=== PATIENT | female | born 1935 | race Caucasian/White ===

== ENCOUNTER 2020-10-15 12:35 | Observation (INO) | payer MEDICARE ==
--- NOTE | 2020-10-15 13:52 | EDM.PDOC ---
ED HPI GENERAL MEDICAL PROBLEM - General Chief Complaint: Gastrointestinal Problem Stated Complaint: POSSIBLE DIVERTICULITIS Time Seen by Provider: 10/15/20 13:47 Source of Information: Reports: Patient History Limitations: Reports: No Limitations - History of Present Illness INITIAL COMMENTS - FREE TEXT/NARRATIVE: pt has been ill for the past 2 weeks. She has been having left sided low grade abdomanal pain. She has been vomiting some. She has been checked at the clinic her urine was clear. She has not been getting enough fluids in. Onset: Gradual Duration: Day(s): Location: Reports: Abdomen Associated Symptoms: Reports: Loss of Appetite, Nausea/Vomiting, Other (pain in left lower abdoman. ) - Related Data Allergies Allergy/AdvReac Type Severity Reaction Status Date / Time atorvastatin calcium Allergy Dizziness Verified 10/15/20 13:46 [From Lipitor] erythromycin base Allergy Rash Verified 10/15/20 13:46 [Erythromycin Base] fenofibrate [From Lofibra] Allergy Swelling Verified 10/15/20 13:46 fenofibrate,micronized Allergy Swelling Verified 10/15/20 13:46 [From Lofibra] neomycin [Neomycin] Allergy Cannot Verified 10/15/20 13:46 Remember nickel [Nickel] Allergy Rash Verified 10/15/20 13:46 Penicillins Allergy Hives Verified 10/15/20 13:46 moxifloxacin HCl AdvReac Unknown Cannot Verified 10/15/20 13:46 [From Vigamox] Remember codeine AdvReac Nausea and Verified 10/15/20 13:46 Vomiting colesevelam HCl AdvReac Nausea Verified 10/15/20 13:46 [From WelChol] hydrocodone AdvReac Nausea Verified 10/15/20 13:46 ketorolac AdvReac Nausea Verified 10/15/20 13:46 niacin AdvReac Abdominal Verified 10/15/20 13:46 [From Niaspan Pain Extended-Release] ondansetron AdvReac Headache Verified 10/15/20 13:46 pravastatin AdvReac Muscle Verified 10/15/20 13:46 Aches simvastatin AdvReac Muscle Verified 10/15/20 13:46 Aches tramadol AdvReac Nausea Verified 10/15/20 13:46 Home Meds: Home Meds Calcium Citrate 250 mg PO BID 03/05/13 [History] Cholecalciferol (Vitamin D3) [Vitamin D] 2,000 unit PO DAILY 03/05/13 [History] Ketotifen Fumarate [Zaditor] 2 drop OP TID 03/05/13 [History] Levothyroxine Sodium [Synthroid] 25 mcg PO DAILY 03/05/13 [History] Ubidecarenone [Coenzyme Q10] 100 mg PO DAILY 03/05/13 [History] Past Medical History HEENT History: Reports: Cataract, Hard of Hearing, Impaired Vision Respiratory History: Reports: Bronchitis, Recurrent Gastrointestinal History: Reports: Diverticulosis Genitourinary History: Reports: UTI, Recurrent [employer] History: Reports: Musculoskeletal History: Reports: Arthritis, Osteoporosis Endocrine/Metabolic History: Reports: Hypothyroidism - Past Surgical History HEENT Surgical History: Reports: Cataract Surgery GI Surgical History: Reports: Appendectomy Musculoskeletal Surgical History: Reports: Knee Replacement ED ROS GENERAL - Review of Systems Review Of Systems: See Below Constitutional: Reports: Weakness, Decreased Appetite, Weight Loss HEENT: Reports: No Symptoms Respiratory: Reports: No Symptoms Cardiovascular: Reports: No Symptoms Endocrine: Reports: No Symptoms GI/Abdominal: Reports: Abdominal Pain, Other (pt is having left lower abdomanal pain. ) : Reports: No Symptoms Musculoskeletal: Reports: No Symptoms Skin: Reports: No Symptoms ED EXAM, GI/ABD - Physical Exam Exam: See Below Text/Narrative:: pt arrived with pain in left lower abdoman. Low grade but it has been present for the past 2 weeks. Her stools have been normal. She has been vomiting. Exam Limited By: No Limitations General Appearance: Alert, Anxious, Mild Distress Ears: Normal TMs Nose: Normal Inspection Throat/Mouth: Normal Inspection Head: Atraumatic Neck: Normal Inspection Respiratory/Chest: No Respiratory Distress Cardiovascular: Regular Rate, Rhythm GI/Abdominal Exam: Tender, Other (pt has left lower abdomanal tenderness) Course - Vital Signs Last Recorded V/S: Last Vital Signs Temp 36.3 C 10/15/20 13:49 Pulse 86 10/15/20 13:49 Resp 16 10/15/20 13:49 BP 122/69 10/15/20 13:49 Pulse Ox 93 L 10/15/20 13:49 - Orders/Labs/Meds Orders: Active Orders 24 hr Category Date Time Status Abdomen Ltd [US] Stat Exams 10/15/20 16:41 Ordered Iopamidol [Isovue-300 (61%)] Med 10/15/20 15:10 Active 69 ml IV . DIRECTED PRN Sodium Chloride 0.9% [Normal Saline] 1,000 ml Med 10/15/20 14:30 Active IV ASDIRECTED Sodium Chloride 0.9% [Normal Saline] 100 ml Med 10/15/20 15:15 Active IV ASDIRECTED Medication Orders Sodium Chloride (Normal Saline) 1,000 mls @ 999 mls/hr IV ASDIRECTED SNOW Last Admin: 10/15/20 14:27 Dose: 999 mls/hr Documented by: AARTI Sodium Chloride (Normal Saline) 100 mls @ 3 mls/sec IV ASDIRECTED SNOW Last Admin: 10/15/20 15:44 Dose: 3 mls/sec Documented by: STACONNER Iopamidol (Iopamidol 612 Mg/Ml 100 Ml Bottle) 69 ml IV . DIRECTED PRN PRN Reason: RADIOLOGY EXAM Stop: 10/16/20 15:11 Last Admin: 10/15/20 15:44 Dose: 69 ml Documented by: EVANS Labs: Laboratory Tests 10/15/20 10/15/20 10/15/20 Range/Units 14:00 14:00 14:00 WBC 7.5 (4.5-11.0) K/uL RBC 4.78 (3.30-5.50) M/uL Hgb 14.3 (12.0-15.0) g/dL Hct 42.9 (36.0-48.0) % MCV 90 (80-98) fL MCH 30 (27-31) pg MCHC 33 (32-36) % Plt Count 269 (150-400) K/uL Neut % (Auto) 66.5 H (36-66) % Lymph % (Auto) 14.5 L (24-44) % [place] % (Auto) 14.4 H (2-6) % Eos % (Auto) 4.1 H (2-4) % Baso % (Auto) 0.5 (0-1) % Sodium 138 L (140-148) mmol/L Potassium 4.0 (3.6-5.2) mmol/L Chloride 102 (100-108) mmol/L Carbon Dioxide 28 (21-32) mmol/L Anion Gap 12.0 (5.0-14.0) mmol/L BUN 11 D (7-18) mg/dL Creatinine 0.9 (0.6-1.0) mg/dL Est Cr Clr Drug Dosing 32.23 mL/min Estimated GFR (MDRD) 59 L (>60) Glucose 97 (74-106) mg/dL Calcium 8.2 L (8.5-10.1) mg/dL Total Bilirubin 0.7 (0.2-1.0) mg/dL AST 152 H D (15-37) U/L ALT 293 H (12-78) U/L Alkaline Phosphatase 219 H D (46-116) U/L C-Reactive Protein 5.58 H (0.0-0.3) mg/dL Total Protein 6.3 L (6.4-8.2) g/dL Albumin 2.8 L (3.4-5.0) g/dL Globulin 3.5 (2.3-3.5) g/dL Albumin/Globulin Ratio 0.8 L (1.2-2.2) Meds: Medications Generic Name Dose Route Start Last Admin Trade Name Freq PRN Reason Stop Dose Admin Sodium Chloride 1,000 mls @ 999 mls/hr 10/15/20 14:30 10/15/20 14:27 Normal Saline IV 999 mls/hr ASDIRECTED SNOW Administration Sodium Chloride 100 mls @ 3 mls/sec 10/15/20 15:15 10/15/20 15:44 Normal Saline IV 3 mls/sec ASDIRECTED SNOW Administration Iopamidol 69 ml 10/15/20 15:10 10/15/20 15:44 Iopamidol 612 Mg/Ml 100 Ml Bottle IV 10/16/20 15:11 69 ml . DIRECTED PRN Administration RADIOLOGY EXAM Discontinued Medications Generic Name Dose Route Start Last Admin Trade Name Freq PRN Reason Stop Dose Admin Sodium Chloride 10 ml 10/15/20 15:10 10/15/20 15:45 Sodium Chloride 0.9% 10 Ml Sdv FLUSH 10/15/20 15:11 10 ml ONETIME ONE Administration - Re-Assessments/Exams Free Text/Narrative Re-Assessment/Exam: 10/15/20 16:47 cat scan revealed a possible early diverticulitis. She does have elevated liver enzymes and stones in her gb. Will obtain a abd us to look at the gb. Departure - Departure Time of Disposition: 16:48 Disposition: Admitted As Inpatient 64 Condition: Fair Clinical Impression: Dehydration, Diverticulitis, Elevated liver enzymes - Discharge Information Referrals: Millie Wynne PA [Primary Care Provider] - Forms: ED Department Discharge Care Plan Goals: admit to Dr Aguillon Sepsis Event Note (ED) - Focused Exam Vital Signs: Vital Signs Temp Pulse Resp BP Pulse Ox 10/15/20 13:49 36.3 C 86 16 122/69 93 L 10/15/20 13:40 36.3 C 86 16 122/69 93 L - My Orders Last 24 Hours: My Active Orders 10/15/20 14:30 Sodium Chloride 0.9% [Normal Saline] 1,000 ml IV ASDIRECTED 10/15/20 15:10 Iopamidol [Isovue-300 (61%)] 69 ml IV . DIRECTED PRN 10/15/20 15:15 Sodium Chloride 0.9% [Normal Saline] 100 ml IV ASDIRECTED 10/15/20 16:41 Abdomen Ltd [US] Stat - Assessment/Plan Last 24 Hours: My Active Orders 10/15/20 14:30 Sodium Chloride 0.9% [Normal Saline] 1,000 ml IV ASDIRECTED 10/15/20 15:10 Iopamidol [Isovue-300 (61%)] 69 ml IV . DIRECTED PRN 10/15/20 15:15 Sodium Chloride 0.9% [Normal Saline] 100 ml IV ASDIRECTED 10/15/20 16:41 Abdomen Ltd [US] Stat
[2020-10-15] MEDS ORDERED: Sodium Chloride 0.9% 1,000 ML IV SCH (14:30)
[2020-10-15] MEDS ORDERED: Sodium Chloride 0.9% 10 ML SDV FLUSH ONE (15:10)
[2020-10-15] MEDS ORDERED: Iopamidol 612 MG/ML 100 ML Bottle IV PRN (15:10)
[2020-10-15] MEDS ORDERED: Sodium Chloride 0.9% 100 ML IV SCH (15:15)
--- NOTE | 2020-10-15 16:27 | CRLCT ---
For Patients: As a result of the Century Cures Act, medical imaging exams and procedure reports are released immediately into your electronic medical record. You may view this report before your referring provider. If you have questions, please contact your health care provider. Indication: Abdominal pain liver enzymes are up. Left lower abdominal pain Technique: Contrast and CT abdomen and pelvis with 69 mL Isovue-300 Comparison: No comparison Findings: Heart size normal. 4 millimeter subpleural right lower lobe pulmonary nodule series 2, image 5 2 millimeter pulmonary nodule right lower lobe series 2, image 11 3 millimeter right middle lobe pulmonary nodule on image 12. 4 millimeter left lower lobe pulmonary nodule on image 17. Subcentimeter low-density lesions in the liver too small to characterize. Cholelithiasis no biliary dilatation seen. Spleen pancreas unremarkable no abdominal aortic aneurysm. Symmetric both kidneys. Cyst right kidney extrarenal pelvis on the right. Urinary bladder distended. Small right bladder diverticulum. There is diverticulosis. There is a larger diverticulum of the sigmoid colon with minimal stranding this could represent mild diverticulitis. This is seen on series 2, image 77. No bowel obstruction. No suspicious bony lesions. Impression: 1. Diverticulosis. Larger diverticulum of the sigmoid colon with adjacent minimal stranding which may represent very mild diverticulitis. 2. Small pulmonary nodules follow-up per Fleischner society guidelines. 3. Cholelithiasis no biliary dilatation seen. Please note that all CT scans at this facility use dose modulation, iterative reconstruction, and/or weight-based dosing when appropriate to reduce radiation dose to as low as reasonably achievable. Dictated by Eve Bird MD @ 10/15/2020 4:26:[address] Eve Bird @ Oct 15 2020 4:26PM
[2020-10-15] MEDS ORDERED: diphenhydrAMINE 50 MG/ML SDV IVPUSH PRN (17:46)
[2020-10-15] MEDS ORDERED: EPINEPHrine 1 MG/ML SDV IM PRN (17:48)
[2020-10-15] MEDS ORDERED: Prochlorperazine 10 MG/2 ML SDV IV PRN (17:51)
[2020-10-15] MEDS ORDERED: cefTRIAXone 2 GM in Sodium Chloride 0.9% 50 ML IV SCH (18:00)
--- NOTE | 2020-10-15 18:23 | CRLUS ---
For Patients: As a result of the Century Cures Act, medical imaging exams and procedure reports are released immediately into your electronic medical record. You may view this report before your referring provider. If you have questions, please contact your health care provider. INDICATION: Abdominal pain TECHNIQUE: Ultrasound abdomen limited. Sonographic images of the right upper quadrant were obtained using leone-scale and color Doppler images. COMPARISON: CT abdomen from earlier today FINDINGS: Liver: Normal in size and echotexture. No masses. No intrahepatic biliary dilatation. Gallbladder: Nonmobile echogenic focus in the fundus of the gallbladder. Normal wall thickness. No pericholecystic fluid. Sonographic Avendano`s sign is negative. Common bile duct: 3 mm. Pancreas: Normal. Right kidney: 9.6 x 3.6 x 4.8 cm. Normal echotexture and cortex. 2 cm cyst on the right kidney. No stones, or hydronephrosis. Vasculature: Proximal abdominal aorta and IVC are normal. IMPRESSION: No evidence for acute cholecystitis. Ill-defined echogenic focus in the fundus of the gallbladder. This could represent a polyp or stone. Dictated by Sasha Collins MD @ 10/15/2020 6:21:[address] Sasha Collins @ Oct 15 2020 6:21PM
--- NOTE | 2020-10-15 18:35 | PCM.HP.2 ---
H&P History of Present Illness - General Date of Service: 10/15/20 Admit Problem/Dx: Admission Diagnosis/Problem Admission Diagnosis/Problem Diverticulitis Source of Information: Patient History Limitations: Reports: No Limitations - History of Present Illness Initial Comments - Free Text/Narative: Ms. Odom is an 84-year-old white female who presents after 2 weeks of left lower abdominal pain. She has also had fatigue, no appetite, a dull low back pain, a stomach ache, and a headache. She states that 2 days ago she did have nausea and vomiting from a stress test with associated headache, and stomachache and that the symptoms may not be related to her abdominal pain. She denies diarrhea, constipation, and nausea or vomiting except for the episode associated with the stress test. She states that [facility] and they told her she has diverticulitis and wanted to put her on antibiotics and she declined. She does not like the side effects of multiple medications and lists them as allergies. The [facility] advised her to either go to the ER or see her primary care physician on Friday. He decided to come into the ER when she could not sleep last night due to the pain so she had her daughter bring her. In the ER she was given IV fluids. She had a CT done that showed mild fat stranding around 1 large diverticula in the colon likely representing mild diverticulitis. She also had incidental findings of diverticulosis, multiple pulmonary nodules, and multiple liver lesions that were too small to characterize. On examination she has guarding pain in the left lower quadrant to deep palpation. She also has an audible wheeze that is coming from her neck. Her lungs are clear to auscultation, and her pharynx is normal in appearance. She states that she has had this wheeze for a long time, and she has never had it looked at. She does state that over the summer she has had significant sinus issues. She states that she was a smoker when she was a teenager but now she only smokes occasionally. She will be admitted to the floors under observation. We will be giving her IV antibiotics to reduce the amount of stomach upset as that seems to be the biggest side effect that she does not like. She states that she gets "hives" from penicillins however she also states that most of the medications on her allergy list will kill her. I will be starting her on IV ceftriaxone and IV metronidazole. Ceftriaxone can have a 2% crossover with people who have anaphylaxis to penicillins. Benadryl and epinephrine will be available if she does have a reaction however I think this is highly unlikely. Onset of Symptoms: Reports: Gradual Duration of Symptoms: Reports: Week(s): (To) Location: Reports: Abdomen Quality: Reports: Ache Severity: Moderate Associated Symptoms: Reports: Loss of Appetite - Related Data Allergies/Adverse Reactions: Allergies Allergy/AdvReac Type Severity Reaction Status Date / Time atorvastatin calcium Allergy Dizziness Verified 10/15/20 13:46 [From Lipitor] erythromycin base Allergy Rash Verified 10/15/20 13:46 [Erythromycin Base] fenofibrate [From Lofibra] Allergy Swelling Verified 10/15/20 13:46 fenofibrate,micronized Allergy Swelling Verified 10/15/20 13:46 [From Lofibra] neomycin [Neomycin] Allergy Cannot Verified 10/15/20 13:46 Remember nickel [Nickel] Allergy Rash Verified 10/15/20 13:46 Penicillins Allergy Hives Verified 10/15/20 13:46 moxifloxacin HCl AdvReac Unknown Cannot Verified 10/15/20 13:46 [From Vigamox] Remember codeine AdvReac Nausea and Verified 10/15/20 13:46 Vomiting colesevelam HCl AdvReac Nausea Verified 10/15/20 13:46 [From WelChol] hydrocodone AdvReac Nausea Verified 10/15/20 13:46 ketorolac AdvReac Nausea Verified 10/15/20 13:46 niacin AdvReac Abdominal Verified 10/15/20 13:46 [From Niaspan Pain Extended-Release] ondansetron AdvReac Headache Verified 10/15/20 13:46 pravastatin AdvReac Muscle Verified 10/15/20 13:46 Aches simvastatin AdvReac Muscle Verified 10/15/20 13:46 Aches tramadol AdvReac Nausea Verified 10/15/20 13:46 Home Medications: Home Meds Calcium Citrate 250 mg PO BID 03/05/13 [History] Cholecalciferol (Vitamin D3) [Vitamin D] 2,000 unit PO DAILY 03/05/13 [History] Ketotifen Fumarate [Zaditor] 2 drop OP TID 03/05/13 [History] Levothyroxine Sodium [Synthroid] 25 mcg PO DAILY 03/05/13 [History] Ubidecarenone [Coenzyme Q10] 100 mg PO DAILY 03/05/13 [History] Past Medical History HEENT History: Reports: Cataract, Hard of Hearing, Impaired Vision Respiratory History: Reports: Bronchitis, Recurrent Gastrointestinal History: Reports: Diverticulosis Genitourinary History: Reports: UTI, Recurrent [employer] History: Reports: Musculoskeletal History: Reports: Arthritis, Osteoporosis Endocrine/Metabolic History: Reports: Hypothyroidism - Past Surgical History HEENT Surgical History: Reports: Cataract Surgery GI Surgical History: Reports: Appendectomy Musculoskeletal Surgical History: Reports: Knee Replacement Social & Family History - Tobacco Use Tobacco Use Status *Q: Never Tobacco User H&P Review of Systems - Review of Systems: Review Of Systems: See Below General: Reports: Malaise, Decreased Appetite HEENT: Reports: Hearing Changes (She states she is very hard of hearing and forgot her hearing aids), Sinus Congestion, Other (sinus congestion, audible wheeze coming from neck) Pulmonary: Reports: No Symptoms. Denies: Shortness of Breath, Cough Cardiovascular: Reports: No Symptoms. Denies: Chest Pain, Palpitations Gastrointestinal: Reports: Abdominal Pain, Anorexia, Decreased Appetite. Denies: Diarrhea Genitourinary: Reports: Frequency (She states that she has had urinary frequency all summer). Denies: Dysuria, Urgency, Incontinence Musculoskeletal: Reports: No Symptoms Skin: Reports: No Symptoms Psychiatric: Reports: No Symptoms. Denies: Confusion Neurological: Reports: No Symptoms. Denies: Confusion, Dizziness, Headache Exam - Exam Exam: See Below - Vital Signs Vital Signs: Last Vital Signs Temp 97.4 F 10/15/20 13:49 Pulse 86 10/15/20 13:49 Resp 16 10/15/20 13:49 BP 122/69 10/15/20 13:49 Pulse Ox 93 L 10/15/20 13:49 Weight: 101 lb 6.602 oz - Exam Quality Assessment: DVT Prophylaxis. No: Supplemental Oxygen, Central Line/PICC, Urinary Catheter, Skin Breakdown, Restraints General: Alert, Oriented, Cooperative, Mild Distress HEENT: Conjunctiva Clear, EOMI, Mucosa Moist & [place], Posterior Pharynx Clear, Pupils Equal. No: Hearing Intact Neck: Supple, Trachea Midline, Other (Audible wheeze heard best at the mid neck possibly related to the larynx) Lungs: Clear to Auscultation, Normal Respiratory Effort Cardiovascular: Regular Rate, Regular Rhythm GI/Abdominal Exam: Normal Bowel Sounds, Soft, No Distention, Guarding (With deep palpation in the left lower quadrant), Tender (Left lower quadrant) Back Exam: Normal Inspection Extremities: Normal Inspection, Non-Tender, No Pedal Edema Skin: Warm, Dry, Intact Neuro Extensive - Mental Status: Alert, Oriented x3, Normal Mood/Affect, Normal Cognition Neuro Extensive - Motor, Sensory, Reflexes: Normal Gait Psychiatric: Alert, Normal Affect, Normal Mood - Patient Data Lab Results Last 24 hrs: Laboratory Results - last 24 hr 10/15/20 10/15/20 10/15/20 Range/Units 14:00 14:00 14:00 WBC 7.5 (4.5-11.0) K/uL RBC 4.78 (3.30-5.50) M/uL Hgb 14.3 (12.0-15.0) g/dL Hct 42.9 (36.0-48.0) % MCV 90 (80-98) fL MCH 30 (27-31) pg MCHC 33 (32-36) % Plt Count 269 (150-400) K/uL Neut % (Auto) 66.5 H (36-66) % Lymph % (Auto) 14.5 L (24-44) % [place] % (Auto) 14.4 H (2-6) % Eos % (Auto) 4.1 H (2-4) % Baso % (Auto) 0.5 (0-1) % Sodium 138 L (140-148) mmol/L Potassium 4.0 (3.6-5.2) mmol/L Chloride 102 (100-108) mmol/L Carbon Dioxide 28 (21-32) mmol/L Anion Gap 12.0 (5.0-14.0) mmol/L BUN 11 D (7-18) mg/dL Creatinine 0.9 (0.6-1.0) mg/dL Est Cr Clr Drug Dosing 32.23 mL/min Estimated GFR (MDRD) 59 L (>60) Glucose 97 (74-106) mg/dL Calcium 8.2 L (8.5-10.1) mg/dL Total Bilirubin 0.7 (0.2-1.0) mg/dL AST 152 H D (15-37) U/L ALT 293 H (12-78) U/L Alkaline Phosphatase 219 H D (46-116) U/L C-Reactive Protein 5.58 H (0.0-0.3) mg/dL Total Protein 6.3 L (6.4-8.2) g/dL Albumin 2.8 L (3.4-5.0) g/dL Globulin 3.5 (2.3-3.5) g/dL Albumin/Globulin Ratio 0.8 L (1.2-2.2) Amylase (25-115) U/L Lipase (73-393) U/L 10/15/20 Range/Units 14:00 WBC (4.5-11.0) K/uL RBC (3.30-5.50) M/uL Hgb (12.0-15.0) g/dL Hct (36.0-48.0) % MCV (80-98) fL MCH (27-31) pg MCHC (32-36) % Plt Count (150-400) K/uL Neut % (Auto) (36-66) % Lymph % (Auto) (24-44) % [place] % (Auto) (2-6) % Eos % (Auto) (2-4) % Baso % (Auto) (0-1) % Sodium (140-148) mmol/L Potassium (3.6-5.2) mmol/L Chloride (100-108) mmol/L Carbon Dioxide (21-32) mmol/L Anion Gap (5.0-14.0) mmol/L BUN (7-18) mg/dL Creatinine (0.6-1.0) mg/dL Est Cr Clr Drug Dosing mL/min Estimated GFR (MDRD) (>60) Glucose (74-106) mg/dL Calcium (8.5-10.1) mg/dL Total Bilirubin (0.2-1.0) mg/dL AST (15-37) U/L ALT (12-78) U/L Alkaline Phosphatase (46-116) U/L C-Reactive Protein (0.0-0.3) mg/dL Total Protein (6.4-8.2) g/dL Albumin (3.4-5.0) g/dL Globulin (2.3-3.5) g/dL Albumin/Globulin Ratio (1.2-2.2) Amylase 55 (25-115) U/L Lipase 79 (73-393) U/L Result Diagrams: 10/15/20 14:00 10/15/20 14:00 Sepsis Event Note - Evaluation Sepsis Screening Result: No Definite Risk - Focused Exam Vital Signs: Vital Signs Temp Pulse Resp BP Pulse Ox 10/15/20 13:49 97.4 F 86 16 122/69 93 L 10/15/20 13:40 97.4 F 86 16 122/69 93 L - Problem List (1) Diverticulitis SNOMED Code(s): 229105550 ICD Code: K57.92 - DVTRCLI OF INTEST, PART UNSP, W/O PERF OR ABSCESS W/O BLEED Status: Acute Current Visit: Yes (2) Elevated liver enzymes SNOMED Code(s): 542270757 ICD Code: R74.8 - ABNORMAL LEVELS OF OTHER SERUM ENZYMES Status: Acute Current Visit: Yes Problem List Initiated/Reviewed/Updated: Yes Orders Last 24hrs: Active Orders 24 hr Category Date Time Status Admission Status [Patient Status] [ADT] Routine ADT 10/15/20 17:33 Active Ambulate [RC] PER UNIT ROUTINE Care 10/15/20 17:56 Active Antiembolic Devices [RC] .Routine Care 10/15/20 17:54 Active Oxygen Therapy [RC] PRN Care 10/15/20 17:56 Active VTE/DVT Education [RC] Click to Edit Care 10/15/20 17:54 Active Vital Signs [RC] Q4H Care 10/15/20 17:56 Active Clear Liquid Diet [DIET] Diet 10/16/20 Breakfast Active Abdomen Ltd [US] Stat Exams 10/15/20 16:41 Taken BASIC METABOLIC PANEL,BMP [CHEM] Routine Lab 10/16/20 05:00 Ordered CBC WITH AUTO DIFF [HEME] Routine Lab 10/16/20 05:00 Ordered EPINEPHrine [Adrenalin] Med 10/15/20 17:48 Active 0.3 mg IM ONETIME PRN Famotidine [Pepcid] Med 10/15/20 21:00 Ordered 20 mg IVPUSH BID Iopamidol [Isovue-300 (61%)] Med 10/15/20 15:10 Active 69 ml IV . DIRECTED PRN Prochlorperazine [Compazine] Med 10/15/20 17:51 Active 5 mg IV Q6H PRN Sodium Chloride 0.9% [Normal Saline] 1,000 ml Med 10/15/20 18:00 Active IV ASDIRECTED cefTRIAXone [Rocephin] 2 gm Med 10/15/20 18:00 Active Sodium Chloride 0.9% [Normal Saline] 50 ml IV Q24H diphenhydrAMINE [Benadryl] Med 10/15/20 17:46 Active 50 mg IVPUSH ONETIME PRN metroNIDAZOLE/Normal Saline [Flagyl in NS 500 MG/100 ML Med 10/15/20 18:00 Active ] 500 mg Premix Bag 1 bag IV Q8H DVT/VTE Prophylaxis Reflex [OM.PC] Routine Oth 10/15/20 17:54 Ordered Medication Orders Diphenhydramine HCl (Diphenhydramine 50 Mg/Ml Sdv) 50 mg IVPUSH ONETIME PRN PRN Reason: Allergies Epinephrine HCl (Epinephrine 1 Mg/Ml Sdv) 0.3 mg IM ONETIME PRN PRN Reason: Allergies Famotidine (Famotidine 20 Mg/2 Ml Sdv) 20 mg IVPUSH BID SNOW Ceftriaxone Sodium 2 gm/ (Sodium Chloride) 50 mls @ 100 mls/hr IV Q24H SNOW Metronidazole 500 mg/ Premix 100 mls @ 100 mls/hr IV Q8H SNOW Sodium Chloride (Normal Saline) 1,000 mls @ 100 mls/hr IV ASDIRECTED SNOW Iopamidol (Iopamidol 612 Mg/Ml 100 Ml Bottle) 69 ml IV . DIRECTED PRN PRN Reason: RADIOLOGY EXAM Stop: 10/16/20 15:11 Last Admin: 10/15/20 15:44 Dose: 69 ml Documented by: STACMAG Prochlorperazine Edisylate (Prochlorperazine 10 Mg/2 Ml Sdv) 5 mg IV Q6H PRN PRN Reason: Nausea/Vomiting Assessment/Plan Comment:: Assessment: Mild Diverticulitis -Left lower quadrant abdominal pain for 2 weeks -CT showed mild fat stranding around one large diverticula suggestive of diverticulitis -We will start IV ceftriaxone and IV metronidazole with precautions for allergic reaction with Benadryl and epinephrine available -We will also have Compazine available for nausea or stomach upset related to the antibiotics however getting them IV should prevent this -We will have her on a clear liquid diet until her pain has subsided -I had a discussion with the patient and her mother regarding the ability to eat popcorn, nuts, seeds, and strawberries. I told her that she does not need to eliminate anything from her diet as long as she is eating adequate amounts of fiber to keep her stools regular Elevated Liver Enzymes -The CT showed small lesions in the liver that were too small to characterize, there were gallstones in the gallbladder however there was no ductal dilation to suggest choledocholithiasis -AST 152, ALT 293, alk phos 219, bilirubin 0.7 -She has a mixed pattern with an R factor of 2 -Abdominal ultrasound-showed no signs of cholecystitis, and no abnormalities of the liver were seen -Acute hepatitis panel and hepatitis C antibody has been ordered -Consideration for autoimmune hepatitis is low as the AST and ALT are not mahesh edly elevated, however she does have an elevated CRP at 5.58 -The patient only takes levothyroxine, calcium with vitamin D, and for the past 2 days a cranberry supplement Hypothyroidism -We will take home Synthroid 25 mcg Incidental pulmonary nodules -Seen on CT: 4 mm subpleural right lower lobe, 2 mm right lower lobe, 3 mm right middle lobe, 4 mm left lower lobe -I did notify the patient of these findings in the ED Plan: Patient will be admitted for IV antibiotics with precautions for allergic reaction. Labs will be sent for analysis of elevated liver enzymes. Disposition: Patient will go home after admission to observation. Eun Aguillon DO - Mortality Measure Prognosis:: Good
[2020-10-15] MEDS: metroNIDAZOLE/Normal Saline 500 MG in Premix Bag 1 BAG IV SCH (18:41)
[2020-10-15] MEDS: Sodium Chloride 0.9% 1,000 ML IV SCH (18:42)
[2020-10-15] MEDS ORDERED: Famotidine 20 MG/2 ML SDV IVPUSH SCH (21:00)
[2020-10-16] MEDS: metroNIDAZOLE/Normal Saline 500 MG in Premix Bag 1 BAG IV SCH ×2 (03:00→09:58)
[2020-10-16] MEDS: Sodium Chloride 0.9% 1,000 ML IV SCH (06:46)
[2020-10-16] MEDS ORDERED: LEVOTHYROXINE 25 MCG PO SCH (08:00)
[2020-10-16] MEDS ORDERED: Famotidine 20 MG/2 ML SDV IVPUSH SCH (09:00)
[2020-10-16] MEDS ORDERED: metroNIDAZOLE/Normal Saline 500 MG in Premix Bag 1 BAG IV SCH (10:00)
--- NOTE | 2020-10-16 10:46 | PCM.DCSUM1 ---
Discharge Summary - Hospital Course Brief History: 84-year-old female with history of hypothyroidism who presented with abdominal pain. She is admitted to observation for initial management of mild diverticulitis. Diagnosis: Stroke: No - Discharge Data Discharge Date: 10/16/20 Discharge Disposition: Home, Self-Care 01 Condition: Good - Referral to Home Health Primary Care Physician: AUNDREA Donato - Discharge Diagnosis/Problem(s) (1) Diverticulitis SNOMED Code(s): 879044003 ICD Code: K57.92 - DVTRCLI OF INTEST, PART UNSP, W/O PERF OR ABSCESS W/O BLEED Status: Acute (2) Elevated liver enzymes SNOMED Code(s): 008337871 ICD Code: R74.8 - ABNORMAL LEVELS OF OTHER SERUM ENZYMES Status: Acute - Patient Summary/Data Hospital Course: Mickie presented to the emergency room with progressive abdominal pain and nausea. Work-up in the emergency room revealed evidence for mild diverticulitis involving 1 diverticulum. The patient has a history of significant reactions to antibiotics so she was admitted to the hospital for initiation of antibiotics. She was started on ceftriaxone and metronidazole. She tolerated these well. Even by the morning after admission she is feeling much better. She has minimal to no pain. Her nausea has resolved. She tolerated clear liquids without any difficulty. She has not had any fevers. Her laboratory studies are unremarkable. She feels well enough to go home at this time. The plan is for her to go home with cefdinir and metronidazole for a total of 1 week of antibiotics. Incidentally we did note some very small pulmonary nodules and follow-up per the Fleischner criteria was recommended. Also noted on the CT were some gallstones but no active symptoms of gallbladder disease. - Patient Instructions Diet: Full Liquid Diet (for a couple days then advance to normal ) Activity: As Tolerated Showering/Bathing: May Shower Notify Provider of: Fever, Increased Pain Other/Special Instructions: 1. You were in the hospital for management of acute diverticulitis with one small area of inflammation involving your colon. Your condition has been improving with antibiotic therapy. I recommend ongoing antibiotic therapy with a combination of cefdinir and metronidazole. Please take cefdinir 300 mg twice daily with food for 12 more doses. Please also take metronidazole 500 mg 3 times daily with food for 18 doses. Your first dose of both of these medications will be due tonight around bedtime. You should follow a liquid or very soft food diet for the next couple of days and then advance to soft, bland and boring diet for several more days. You should be able to eat regular food by the weekend. 2. During the hospital stay we discovered several small pulmonary nodules. These will require a follow-up CT scan in 1 year. They are not concerning but should be followed up just to make sure they do not progress. 3. Continue your usual home medications as previously prescribed. - Discharge Plan *PRESCRIPTION DRUG MONITORING PROGRAM REVIEWED*: Not Applicable *COPY OF PRESCRIPTION DRUG MONITORING REPORT IN PATIENT PORFIRIO: Not Applicable Prescriptions/Med Rec: Cefdinir 300 mg PO BID #12 capsule Prochlorperazine [Compazine] 5 mg PO Q6H PRN #15 tab PRN Reason: Nausea metroNIDAZOLE [Metronidazole] 500 mg PO TID #18 tablet Home Medications: Home Meds Calcium Citrate 250 mg PO BID 03/05/13 [History] Cholecalciferol (Vitamin D3) [Vitamin D3] 2,000 unit PO DAILY 03/05/13 [History] Ketotifen Fumarate [Zaditor] 2 drop OP TID 03/05/13 [History] Levothyroxine Sodium [Synthroid] 25 mcg PO DAILY 03/05/13 [History] Ubidecarenone [Coenzyme Q10] 100 mg PO DAILY 03/05/13 [History] Cefdinir 300 mg PO BID #12 capsule 10/16/20 [Rx] Prochlorperazine [Compazine] 5 mg PO Q6H PRN #15 tab 10/16/20 [Rx] metroNIDAZOLE [Metronidazole] 500 mg PO TID #18 tablet 10/16/20 [Rx] Patient Handouts: Cefdinir Capsules, Diverticulitis Referrals: Millie Wynne PA [Primary Care Provider] - (follow up as needed if symptoms do not continue to get better or if they get worse) - Discharge Summary/Plan Comment DC Time >30 min.: No - Patient Data Vitals - Most Recent: Last Vital Signs Temp 36.9 C 10/16/20 07:00 Pulse 77 10/16/20 07:00 Resp 16 10/16/20 07:00 BP 106/42 L 10/16/20 07:00 Pulse Ox 94 L 10/16/20 07:00 Weight - Most Recent: 44.7 kg I&O - Last 24 hours: Intake & Output 10/15/20 10/16/20 10/16/20 22:59 06:59 14:59 Intake Total 600 950 680 Output Total 300 400 100 Balance 300 550 580 Lab Results - Last 24 hrs: Laboratory Results - last 24 hr 10/15/20 10/15/20 10/15/20 Range/Units 14:00 14:00 14:00 WBC 7.5 (4.5-11.0) K/uL RBC 4.78 (3.30-5.50) M/uL Hgb 14.3 (12.0-15.0) g/dL Hct 42.9 (36.0-48.0) % MCV 90 (80-98) fL MCH 30 (27-31) pg MCHC 33 (32-36) % Plt Count 269 (150-400) K/uL Neut % (Auto) 66.5 H (36-66) % Lymph % (Auto) 14.5 L (24-44) % [place] % (Auto) 14.4 H (2-6) % Eos % (Auto) 4.1 H (2-4) % Baso % (Auto) 0.5 (0-1) % Sodium 138 L (140-148) mmol/L Potassium 4.0 (3.6-5.2) mmol/L Chloride 102 (100-108) mmol/L Carbon Dioxide 28 (21-32) mmol/L Anion Gap 12.0 (5.0-14.0) mmol/L BUN 11 D (7-18) mg/dL Creatinine 0.9 (0.6-1.0) mg/dL Est Cr Clr Drug Dosing 32.23 mL/min Estimated GFR (MDRD) 59 L (>60) Glucose 97 (74-106) mg/dL Calcium 8.2 L (8.5-10.1) mg/dL Total Bilirubin 0.7 (0.2-1.0) mg/dL Direct Bilirubin (0.0-0.2) mg/dL Indirect Bilirubin AST 152 H D (15-37) U/L ALT 293 H (12-78) U/L Alkaline Phosphatase 219 H D (46-116) U/L C-Reactive Protein 5.58 H (0.0-0.3) mg/dL Total Protein 6.3 L (6.4-8.2) g/dL Albumin 2.8 L (3.4-5.0) g/dL Globulin 3.5 (2.3-3.5) g/dL Albumin/Globulin Ratio 0.8 L (1.2-2.2) Amylase (25-115) U/L Lipase (73-393) U/L 10/15/20 10/16/20 10/16/20 Range/Units 14:00 05:59 05:59 WBC 6.7 (4.5-11.0) K/uL RBC 4.18 (3.30-5.50) M/uL Hgb 12.4 (12.0-15.0) g/dL Hct 38.2 (36.0-48.0) % MCV 91 (80-98) fL MCH 30 (27-31) pg MCHC 33 (32-36) % Plt Count 246 (150-400) K/uL Neut % (Auto) 58.2 (36-66) % Lymph % (Auto) 18.6 L (24-44) % [place] % (Auto) 15.8 H (2-6) % Eos % (Auto) 6.9 H (2-4) % Baso % (Auto) 0.5 (0-1) % Sodium 140 (140-148) mmol/L Potassium 3.6 (3.6-5.2) mmol/L Chloride 106 (100-108) mmol/L Carbon Dioxide 24 (21-32) mmol/L Anion Gap 10.0 (5.0-14.0) mmol/L BUN 8 (7-18) mg/dL Creatinine 0.7 (0.6-1.0) mg/dL Est Cr Clr Drug Dosing 40.71 mL/min Estimated GFR (MDRD) > 60 (>60) Glucose 82 (74-106) mg/dL Calcium 7.5 L (8.5-10.1) mg/dL Total Bilirubin (0.2-1.0) mg/dL Direct Bilirubin (0.0-0.2) mg/dL Indirect Bilirubin AST (15-37) U/L ALT (12-78) U/L Alkaline Phosphatase (46-116) U/L C-Reactive Protein (0.0-0.3) mg/dL Total Protein (6.4-8.2) g/dL Albumin (3.4-5.0) g/dL Globulin (2.3-3.5) g/dL Albumin/Globulin Ratio (1.2-2.2) Amylase 55 (25-115) U/L Lipase 79 (73-393) U/L // Range/Units 08:19 WBC (4.5-11.0) K/uL RBC (3.30-5.50) M/uL Hgb (12.0-15.0) g/dL Hct (36.0-48.0) % MCV (80-98) fL MCH (27-31) pg MCHC (32-36) % Plt Count (150-400) K/uL Neut % (Auto) (36-66) % Lymph % (Auto) (24-44) % [place] % (Auto) (2-6) % Eos % (Auto) (2-4) % Baso % (Auto) (0-1) % Sodium (140-148) mmol/L Potassium (3.6-5.2) mmol/L Chloride (100-108) mmol/L Carbon Dioxide (21-32) mmol/L Anion Gap (5.0-14.0) mmol/L BUN (7-18) mg/dL Creatinine (0.6-1.0) mg/dL Est Cr Clr Drug Dosing mL/min Estimated GFR (MDRD) (>60) Glucose (74-106) mg/dL Calcium (8.5-10.1) mg/dL Total Bilirubin 0.5 (0.2-1.0) mg/dL Direct Bilirubin 0.16 (0.0-0.2) mg/dL Indirect Bilirubin 0.34 AST 61 H (15-37) U/L ALT 194 H (12-78) U/L Alkaline Phosphatase 166 H (46-116) U/L C-Reactive Protein (0.0-0.3) mg/dL Total Protein 5.3 L (6.4-8.2) g/dL Albumin 2.4 L (3.4-5.0) g/dL Globulin 2.9 (2.3-3.5) g/dL Albumin/Globulin Ratio 0.8 L (1.2-2.2) Amylase (25-115) U/L Lipase (73-393) U/L Med Orders - Current: Current Medications Diphenhydramine HCl (Diphenhydramine 50 Mg/Ml Sdv) 50 mg IVPUSH ONETIME PRN PRN Reason: Allergies Epinephrine HCl (Epinephrine 1 Mg/Ml Sdv) 0.3 mg IM ONETIME PRN PRN Reason: Allergies Famotidine (Famotidine 20 Mg/2 Ml Sdv) 20 mg IVPUSH DAILY [facility] Last Admin: 10/16/20 08:07 Dose: 20 mg Documented by: Ceftriaxone Sodium 2 gm/ (Sodium Chloride) 50 mls @ 100 mls/hr IV Q24H [facility] Last Admin: 10/15/20 20:04 Dose: 100 mls/hr Documented by: Sodium Chloride (Normal Saline) 1,000 mls @ 100 mls/hr IV ASDIRECTED [facility] Last Admin: 10/16/20 06:46 Dose: 100 mls/hr Documented by: Metronidazole 500 mg/ Premix 100 mls @ 100 mls/hr IV Q8H [facility] Last Admin: 10/16/20 10:04 Dose: 100 mls/hr Documented by: Levothyroxine Sodium (Levothyroxine 25 Mcg Tab (Ptom)) 25 mcg PO ACBREAKFAST [facility] Last Admin: 10/16/20 08:05 Dose: 25 mcg Documented by: Prochlorperazine Edisylate (Prochlorperazine 10 Mg/2 Ml Sdv) 5 mg IV Q6H PRN PRN Reason: Nausea/Vomiting Last Admin: 10/15/20 22:08 Dose: 5 mg Documented by: Discontinued Medications Famotidine (Famotidine 20 Mg/2 Ml Sdv) 20 mg IVPUSH BID [facility] Last Admin: 10/15/20 22:06 Dose: 20 mg Documented by: Sodium Chloride (Normal Saline) 1,000 mls @ 999 mls/hr IV ASDIRECTED [facility] Last Admin: 10/15/20 14:27 Dose: 999 mls/hr Documented by: Sodium Chloride (Normal Saline) 100 mls @ 3 mls/sec IV ASDIRECTED [facility] Last Admin: 10/15/20 15:44 Dose: 3 mls/sec Documented by: Metronidazole 500 mg/ Premix 100 mls @ 100 mls/hr IV Q8H [facility] Last Admin: 10/16/20 09:58 Dose: 100 mls/hr Documented by: Iopamidol (Iopamidol 612 Mg/Ml 100 Ml Bottle) 69 ml IV . DIRECTED PRN PRN Reason: RADIOLOGY EXAM Stop: 10/16/20 15:11 Last Admin: 10/15/20 15:44 Dose: 69 ml Documented by: Sodium Chloride (Sodium Chloride 0.9% 10 Ml Sdv) 10 ml FLUSH ONETIME ONE Stop: 10/15/20 15:11 Last Admin: 10/15/20 15:45 Dose: 10 ml Documented by:
[2020-10-16 10:51] VITALS: BP 110/59; PULSE 78
[2020-10-17 09:13] LABS: HBSAG SCREEN Negative (Negative); HEP A AB, IGM Negative (Negative); HEP B CORE AB, IGM Negative (Negative); HEP C VIRUS AB <0.1 s/co ratio (0.0-0.9)
== END 2020-10-16 12:51 | disposition home or self-care (01) ==
LOC: JP.ED 12:35 → JP.MS 12:39
PROVIDERS: ADMIT Internal Medicine; ATTEND Internal Medicine
DX: K57.92 Diverticulitis of intestine, part unspecified, without perforation or abscess without bleeding (principal); R74.8 Abnormal levels of other serum enzymes; E03.9 Hypothyroidism, unspecified; M81.0 Age-related osteoporosis without current pathological fracture; Z79.899 Other long term (current) drug therapy; Z88.8 Allergy status to other drugs, medicaments and biological substances; Z88.0 Allergy status to penicillin; Z88.5 Allergy status to narcotic agent; Z79.890 Hormone replacement therapy; Z98.890 Other specified postprocedural states
CPT/HCPCS: 36415; 74177; 76705; 80048; 80053; 80074; 80076; 82150; 83690; 85025; 86140; 99217; 99219; A9270; J0696; J0780; J3490; J7030; Q9967

== ENCOUNTER 2022-06-29 11:56 | Emergency (ER) | payer MEDICARE ==
[2022-06-29 12:15] VITALS: BP 107/55; PULSE 90
[2022-06-29] MEDS ORDERED: Sodium Chloride 0.9% 10 ML Syringe FLUSH PRN (13:21)
[2022-06-29] MEDS ORDERED: Sodium Chloride 0.9% 10 ML Syringe FLUSH ONE (13:32)
[2022-06-29] MEDS ORDERED: Iopamidol 612 MG/ML 100 ML Bottle IV ONE (13:32)
[2022-06-29] MEDS ORDERED: Sodium Chloride 0.9% 50 ML IV ONE (13:32)
== END 2022-06-29 14:58 | disposition home or self-care (01) ==
LOC: JP.ED 11:56
DX: K57.32 Diverticulitis of large intestine without perforation or abscess without bleeding (principal); E03.9 Hypothyroidism, unspecified; Z79.899 Other long term (current) drug therapy; Z88.0 Allergy status to penicillin; Z88.1 Allergy status to other antibiotic agents; Z88.5 Allergy status to narcotic agent; Z91.048 Other nonmedicinal substance allergy status; Z88.8 Allergy status to other drugs, medicaments and biological substances; Z20.822 Contact with and (suspected) exposure to COVID-19
CPT/HCPCS: 36415; 74177; 80048; 81001; 85025; 99284; J3490; Q9967; 99283

== ENCOUNTER 2022-08-02 09:39 | Emergency (ER) | payer MEDICARE ==
[2022-08-02 10:16] VITALS: BP 104/64; PULSE 91
== END 2022-08-02 11:20 | disposition home or self-care (01) ==
LOC: JP.ED 09:39
DX: R33.9 Retention of urine, unspecified (principal); E03.9 Hypothyroidism, unspecified; Z86.16 Personal history of COVID-19; Z88.1 Allergy status to other antibiotic agents; Z88.8 Allergy status to other drugs, medicaments and biological substances; Z79.899 Other long term (current) drug therapy; Z91.048 Other nonmedicinal substance allergy status; Z88.5 Allergy status to narcotic agent; Z88.0 Allergy status to penicillin
CPT/HCPCS: 99283

== ENCOUNTER 2023-11-02 08:38 | Emergency (ER) | payer MEDICARE ==
[2023-11-02 08:49] VITALS: BP 123/87; PULSE 53
[2023-11-02 09:09] LABS: APPEARANCE,URINE CLEAR (CLEAR); BILIRUBIN,URINE NEGATIVE (NEGATIVE); COLOR,URINE YELLOW (YELLOW); GLUCOSE,URINE NEGATIVE (NEGATIVE); KETONES,URINE NEGATIVE (NEGATIVE); LEUKOCYTE ESTERASE,URINE LARGE (NEGATIVE); NITRITE,URINE NEGATIVE (NEGATIVE); OCCULT BLOOD,URINE MODERATE (NEGATIVE); PROTEIN,URINE NEGATIVE (NEGATIVE); UROBILINOGEN,URINE 0.2 EU/dL (0.2-1.0)
[2023-11-02 09:17] LABS: BACTERIA,URINE FEW; EPITHELIAL CELLS,URINE RARE; RBC,URINE 20-30 (0-5); WBC,URINE 75-100 (0-5)
[2023-11-02 09:27] LABS: BASOPHILS ABSOLUTE AUTO 0.05 K/uL (0.00-0.10); BASOPHILS PERCENT AUTO 0.4 % (0.1-1.3); EOSINOPHILS ABSOLUTE AUTO 0.09 K/uL (0.00-0.40); EOSINOPHILS PERCENT AUTO 0.6 % (0.0-5.4); HEMATOCRIT 38.7 % (34.3-46.0); IMMATURE GRAN ABSOLUTE AUTO 0.12 K/uL (0.00-0.23); IMMATURE GRAN PERCENT AUTO 0.9 % (0.0-0.7); LYMPHOCYTES ABSOLUTE AUTO 1.64 K/uL (0.8-3.3); LYMPHOCYTES PERCENT AUTO 11.8 % (11.4-47.7); MEAN CORPUSCULAR HEMOGLOBIN 29.7 pg (31.6-35.5); MEAN CORPUSCULAR HGB CONC 33.6 g/dL (31.6-35.5); MEAN CORPUSCULAR VOLUME 88.4 fL (81.4-99.0); MONOCYTES ABSOLUTE AUTO 1.35 K/uL (0.20-0.90); MONOCYTES PERCENT AUTO 9.7 % (3.3-12.6); NEUTROPHILS ABSOLUTE AUTO 10.67 K/uL (1.0-7.6); NEUTROPHILS PERCENT AUTO 76.6 % (40.0-78.1); PLATELET COUNT,PLT 334 K/uL (130-375); RED BLOOD CELL COUNT 4.38 M/uL (3.77-5.24); WHITE BLOOD CELL COUNT,WBC 13.9 K/uL (3.2-11.0)
[2023-11-02 09:44] LABS: C-REACTIVE PROTEIN 3.85 mg/dL (<0.50); CALCIUM 8.4 mg/dL (8.5-10.1); CREATININE 0.8 mg/dL (0.6-1.0); EST CRCL DRUG DOSING (CG) 34.14 mL/min; POTASSIUM,K 3.7 mmol/L (3.6-5.2)
[2023-11-02 09:48] LABS: ANION GAP 9.7 mmol/L (5.0-14.0)
== END 2023-11-02 10:59 | disposition home or self-care (01) ==
LOC: JP.ED 08:38
DX: N39.0 Urinary tract infection, site not specified (principal); E03.9 Hypothyroidism, unspecified; Z86.16 Personal history of COVID-19; Z79.899 Other long term (current) drug therapy; Z88.1 Allergy status to other antibiotic agents; Z88.0 Allergy status to penicillin; Z88.8 Allergy status to other drugs, medicaments and biological substances; Z91.048 Other nonmedicinal substance allergy status; Z88.5 Allergy status to narcotic agent
CPT/HCPCS: 36415; 51702; 80048; 81001; 85025; 86140; 87040; 87086; 87088; 99283